=== PATIENT | male | born 1975 | race African-American/Black ===

== ENCOUNTER 2018-07-30 21:34 | Emergency (ER) | payer OTHER, SELFPAY | END 2018-07-31 01:40 | disposition home or self-care (01) | LOC: ERS 21:34 | DX: K02.9 Dental caries, unspecified (principal); F17.210 Nicotine dependence, cigarettes, uncomplicated | CPT/HCPCS: 99282 ==

== ENCOUNTER 2020-02-20 15:48 | Observation (INO) | payer SELFPAY ==
[2020-02-20] MEDS ORDERED: Acetaminophen 500 MG TAB ONE (16:08)
[2020-02-20] MEDS ORDERED: Ibuprofen 200 MG TAB ONE (16:08)
[2020-02-20 16:50] LABS: #Basophils 0.1 thou/uL (0.0-0.2); #Eosinphils 0.3 thou/uL (0.0-0.7); #Lymphocytes 2.4 thou/uL (1.20-3.40); #Monocytes 0.6 thou/uL (0.11-0.59); #Neutrophils 2.9 thou/uL (1.40-6.50); %Basophils 1.6 % (0.0-1.0); %Eosinophils 4.2 % (0.0-10.0); %Lymphocytes 38.5 % (21.0-51.0); %Monocytes 9.8 % (0.0-10.0); %Neutrophils 45.8 % (42.0-75.0); Mean Corpuscular HGB CONC 33.9 g/dL (32.0-36.0); Mean Corpuscular Hemoglobin 30.8 pg (27.0-31.0); Mean Corpuscular Volume 90.9 fL (78.0-98.0); Mean Platelet Volume 7.7 fL (7.4-10.4); Platelet Count 200 thou/uL (130-400); RBC Distribution Width 12.1 % (11.5-14.5); Red Blood Cell (RBC) Count 3.91 mill/uL (4.70-6.10); White Blood Cell (WBC) Count 6.3 thou/uL (4.8-10.8)
[2020-02-20 16:54] LABS: Prothrombin Time 13.1 SEC (12.0-14.7)
--- NOTE | 2020-02-20 16:55 | CT ---
CT BRAIN WITHOUT CONTRAST: History: Headache, facial droop. FINDINGS: No evidence of acute infarct, hemorrhage, midline shift or abnormal extraaxial fluid collections is s een. The ventricular size is normal and the basilar cisterns patent. The bony calvarium is intact. Th e visualized paranasal sinuses and mastoid air cells are well aerated. IMPRESSION: No CT evidence of acute intracranial process. POS: MZA
[2020-02-20 17:12] LABS: ALT (SGPT) 8 U/L (8-55); AST (SGOT) 16 U/L (5-34); Albumin 4.4 g/dL (3.5-5.0); Alkaline Phosphatase 61 U/L (40-110); Anion Gap 10 mmol/L (10-20); BUN (Urea Nitrogen) 14 mg/dL (8.9-20.6); Bilirubin, Total 0.3 mg/dL (0.2-1.2); Calc. Creatinine Clearance 0 mL/min (70-130); Calcium 9.4 mg/dL (7.8-10.44); Carbon Dioxide 27 mmol/L (22-29); Chloride 107 mmol/L (98-107); Estimated GFR-MDRD 89; Globulin 2.4 g/dL (2.4-3.5); Glucose 75 mg/dL (70-105); Potassium 4.7 mmol/L (3.5-5.1); Protein, Total 6.8 g/dL (6.0-8.3); Sodium 139 mmol/L (136-145)
[2020-02-20] MEDS ORDERED: Aspirin 325 MG TAB ONE (17:14)
[2020-02-20] MEDS ORDERED: hydrALAZINE 20 MG/ML VIAL SLOW IVP PRN (18:26)
[2020-02-20] MEDS ORDERED: Labetalol HCl 100 MG/20 ML VIAL SLOW IVP PRN (18:26)
--- NOTE | 2020-02-20 18:41 | PDOC.HHP ---
Hospitalist HPI - History of Present Illness Left sided weakness History of Present Illness: PCP: [facility] The patient is a 44/M with PMH significant for marijuana and tobacco abuse that presents to the ER for the above complaint. The patient reports "blacking out" approximately one month ago while walking down the street. He states that he doesn't remember falling, but remembers some people that were walking by him, holding him up because he had a near syncopal episode. He states that he went to the [facility] ER that evening and was diagnosed with anxiety, no testing performed. Since "blacking out", the patient reports having left sided weakness. Reports he has difficulty holding objects in his left hand. He also has noticed that his left leg is a little weak when he is walking. He denies any new falls or trauma. Reports associated blurry vision in his left eye. Denies any headaches, slurred speech, dysphagia. ED Course: VSS NIH 3, Left Nasolabial fold, LUE and LLE drift GCS [address] brain negative for acute intracranial hemorrhage Labs unremarkable Given ASA 324mg Motrin and tylenol Hospitalist ROS - Review of Systems Constitutional: denies: fever, chills, sweats, weakness, malaise, other Eyes: reports: vision change. denies: conjunctivae inflammation, eyelid inflammation ENT: denies: ear pain, ear discharge, nose pain, nose discharge, nose congestion , mouth pain, mouth swelling, throat pain, throat swelling, other Respiratory: denies: cough, dry, shortness of breath, hemoptysis, SOB with excertion, pleuritic pain, sputum, wheezing, other Cardiovascular: denies: chest pain, palpitations, orthopnea, paroxysmal noc. dyspnea, edema, light headedness, other Gastrointestinal: denies: nausea, vomiting, abdominal pain, diarrhea, constipation, melena, hematochezia, other Genitourinary: denies: dysuria, frequency, incontinence, hematuria, retention, other Skin: denies: rash, bruising Neurological: reports: weakness. denies: change in speech, confusion, seizures Hospitalist History - Past Medical History Source: patient Cardiac: reports: no pertinent history Pulmonary: reports: no pertinent history [employer]: reports: no pertinent history Gastrointestinal: reports: no pertinent history Heme/Onc: reports: no pertinent history Hepatobiliary: reports: no pertinent history Musculoskeletal: reports: no pertinent history Rheumatologic: reports: no pertinent history ENT: reports: no pertinent history Renal/: reports: no pertinent history Endocrine: reports: no pertinent history Dermatology: reports: no pertinent history - Past Surgical History Past Surgical History: reports: no pertinent history - Family History Family History: reports: diabetes mellitus - Social History Smoking Status: Current every day smoker Tobacco Type: cigarettes Drugs: reports: marijuana Living Situation: Alone Occupation: Homeless, lives in [place], sometimes with mother, 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 Activity level: independent ambulation - Exam General Appearance: NAD, awake alert Eye: PERRL, anicteric sclera ENT: normocephalic atraumatic, moist mucosa Neck: no JVD, no thyromegaly, no lymphadenopathy, no carotid bruit Heart: RRR, no murmur, no gallops, no rubs, normal peripheral pulses Respiratory: CTAB, no wheezes, no rales, no ronchi Gastrointestinal: soft, non-tender, non-distended, normal bowel sounds, no guarding, no rigidity Extremities: no cyanosis, no edema Skin: no lesions, no rashes Neurological: cranial nerve grossly intact Neurological - other findings: NIH 2, left Nasolabial fold and LLE drift Psychiatric: normal affect, A&O x 3 Hospitalist Results - Labs Result Diagrams: 02/20/20 16:38 02/20/20 16:38 Lab results: WBC 6.3 thou/uL (4.8-10.8) 02/20/20 16:38 Hgb 12.0 g/dL (14.0-18.0) L 02/20/20 16:38 Hct 35.5 % (42.0-52.0) L 02/20/20 16:38 MCV 90.9 fL (78.0-98.0) 02/20/20 16:38 Plt Count 200 thou/uL (130-400) 02/20/20 16:38 Neutrophils % 45.8 % (42.0-75.0) 02/20/20 16:38 Sodium 139 mmol/L (136-145) 02/20/20 16:38 Potassium 4.7 mmol/L (3.5-5.1) 02/20/20 16:38 Chloride 107 mmol/L (98-107) 02/20/20 16:38 Carbon Dioxide 27 mmol/L (22-29) 02/20/20 16:38 BUN 14 mg/dL (8.9-20.6) 02/20/20 16:38 Creatinine 1.09 mg/dL (0.7-1.3) 02/20/20 16:38 Glucose 75 mg/dL (70-105) 02/20/20 16:38 Calcium 9.4 mg/dL (7.8-10.44) 02/20/20 16:38 Total Bilirubin 0.3 mg/dL (0.2-1.2) 02/20/20 16:38 AST 16 U/L (5-34) 02/20/20 16:38 ALT 8 U/L (8-55) 02/20/20 16:38 Alkaline Phosphatase 61 U/L (40-110) 02/20/20 16:38 Troponin I Less than 0.010 ng/mL (< 0.028) 02/20/20 16:38 Serum Total Protein 6.8 g/dL (6.0-8.3) 02/20/20 16:38 Albumin 4.4 g/dL (3.5-5.0) 02/20/20 16:38 - EKG Interpretation EKG: NSR - Radiology Interpretation CT scan - head Status: report reviewed by me Hospitalist H&P A/P - Problem (1) CVA (cerebral vascular accident) Code(s): I63.9 - CEREBRAL INFARCTION, UNSPECIFIED Status: Acute Assessment and Plan: Admit to telemetry floor, observation status Expected stay less than 24 hours Obtain MRI, CD US, echocardiogram Consult neurology Continue ASA Check FLP, TSH, folic acid and B12 Neuro checks (2) Left hemiparesis Code(s): G81.94 - HEMIPLEGIA, UNSPECIFIED AFFECTING LEFT NONDOMINANT SIDE Status: Acute Assessment and Plan: NIH 2, GCS 15 left facial droop and LLE drift Will perform NIH q shift (3) Marijuana abuse Code(s): F12.10 - CANNABIS ABUSE, UNCOMPLICATED Status: Chronic Assessment and Plan: Patient unwilling to quit Will check serum and urine Drug screen (4) Tobacco abuse Code(s): Z72.0 - TOBACCO USE Status: Chronic Assessment and Plan: Smokes 1 ppd Unwilling to quit Does not request NRT at this time Smoking cessation counseling. - Plan Plan: SCDs for DVT prophylaxis Full Code DPOA sister, Bianca @ [phone]
[2020-02-20] MEDS ORDERED: Acetaminophen 325 MG TAB PO PRN (18:52)
[2020-02-20] MEDS: Famotidine 20 MG TAB PO SCH (20:21)
[2020-02-20 20:43] LABS: Acetaminophen Less than 6.0 mcg/mL (10.0-30.0); Alcohol Less than 10 mg/dL (Less than 10); Salicylate Less than 8.0 mg/dL (15.0-30.0)
[2020-02-20 21:31] VITALS: BMI 23.2
[2020-02-21 03:41] LABS: Amphetamine Not Detected (NotDetected); Barbiturates Screen Not Detected (NotDetected); Benzodiazepine Screen Not Detected (NotDetected); Cocaine Metabolite Screen Not Detected (NotDetected); Medtox Control Line Valid? VALID (VALID); Medtox Reader # READER 1; Methadone Not Detected (NotDetected); Methamphetamine Not Detected (NotDetected); Opiate Screen Not Detected (NotDetected); Oxycodone Screen Not Detected (NotDetected); Phencyclidine (PCP) Not Detected (NotDetected); THC/Cannabinoid Screen Detected (NotDetected); Tricyclic Screen Not Detected (NotDetected)
[2020-02-21 03:47] LABS: Bacteria/HPF None Seen HPF (None Seen); Bilirubin Negative (Negative); Blood, Urine Negative (Negative); Clarity Clear (Clear); Glucose, Urine (Dipstick) Normal (Negative); Leukocyte Negative Leu/uL (Negative); Nitrite Negative (Negative); Protein, Urine (Dipstick) 10 mg/dL (Neg-Trace); RBC/HPF 0-3 HPF (0-3); Squamous Epithelial None Seen HPF (0-3); Urobilinogen Normal mg/dL (Less than 2); WBC/HPF 0-3 HPF (0-3)
[2020-02-21 05:16] LABS: Anion Gap 9 mmol/L (10-20); BUN (Urea Nitrogen) 13 mg/dL (8.9-20.6); Calc. Creatinine Clearance 104 mL/min (70-130); Calcium 9.1 mg/dL (7.8-10.44); Carbon Dioxide 25 mmol/L (22-29); Cardiac Risk 2.8 (Less than 4.5); Chloride 107 mmol/L (98-107); Cholesterol 153 mg/dl (< 200 Desired); Estimated GFR-MDRD Greater than 90; Glucose 83 mg/dL (70-105); HDL Cholesterol 54 mg/dL (>60 Neg Risk); LDL Cholesterol, Calculated 89 mg/dL; Potassium 4.3 mmol/L (3.5-5.1); Sodium 137 mmol/L (136-145); Triglycerides 48 mg/dL (Less than 150)
[2020-02-21 05:37] LABS: Eosinophils 4 % (0-10); Hemoglobin 11.3 g/dL (14.0-18.0); Hypochromia SLIGHT = 6-15 cells (100X) (0-5/hpf); Lymphocytes 61 % (21-51); MDiff Complete? YES; Mean Corpuscular HGB CONC 32.8 g/dL (32.0-36.0); Mean Corpuscular Hemoglobin 30.1 pg (27.0-31.0); Mean Corpuscular Volume 91.7 fL (78.0-98.0); Mean Platelet Volume 7.9 fL (7.4-10.4); Monocytes 3 % (0-10); Neutrophil 32 % (42-75); Platelet Count 182 thou/uL (130-400); Platelet Morphology Comment Appears Adequate; RBC Distribution Width 12.2 % (11.5-14.5); Red Blood Cell (RBC) Count 3.75 mill/uL (4.70-6.10); White Blood Cell (WBC) Count 4.3 thou/uL (4.8-10.8)
--- NOTE | 2020-02-21 07:48 | ULT ---
BILATERAL CAROTID DUPLEX ULTRASOUND: DATE: 02/21/2020 HISTORY: Stroke. TECHNIQUE: Majano scale ultrasound with color flow and spectral Doppler imaging of the extracranial carotid artery systems performed bilaterally. FINDINGS: No significant plaque formation or intimal wall thickening seen. The peak systolic velocity in the right ICA measures 69 cm/second with an end-diastolic velocity of 2 2 cm/second and a systolic ratio of 0.77. The peak systolic velocity in the left ICA measures 60 cm/second with an end-diastolic velocity of 17 cm/second and a systolic ratio of 0.57. Flow in both vertebral arteries remains antegrade. IMPRESSION: No evidence of hemodynamically significant stenosis. POS: ROBINA
[2020-02-21] MEDS: Famotidine 20 MG TAB PO SCH (08:15)
[2020-02-21] MEDS ORDERED: Aspirin 325 mg Enteric Coated Tablet PO SCH (09:00)
[2020-02-21] MEDS ORDERED: Aspirin 81 mg Enteric Coated Tablet PO SCH (09:00)
--- NOTE | 2020-02-21 09:13 | PDOC.HOSPP ---
- Subjective Encounter Date: 02/21/20 Encounter Time: 11:35 Subjective: Patient without complaint this AM, states still with left sided weakness. Had left facial droop yesterday, but when I examined him this morning it was on the right and very obvious. I am suspicious about these symptoms being intentional. - Objective Vital Signs & Weight: Vital Signs (12 hours) Temp Pulse Pulse Pulse Resp BP BP 02/21/20 08:00 98 F 53 L 16 02/21/20 07:54 53 L 52 L 109/65 109/70 02/21/20 03:11 97.5 F L 58 L 16 02/20/20 23:56 97.6 F 61 16 BP BP Pulse Ox 02/21/20 08:00 104/65 100 02/21/20 07:54 02/21/20 03:11 103/64 99 02/20/20 23:56 101/57 L 99 Weight Weight 171 lb 1.6 oz I&O: 02/20/20 02/21/20 02/22/20 06:59 06:59 06:59 Intake Total 610 Output Total 350 Balance 260 Result Diagrams: 02/21/20 04:23 02/21/20 04:23 Hospitalist ROS - Review of Systems Constitutional: denies: fever, chills Respiratory: denies: cough, dry, shortness of breath Cardiovascular: denies: chest pain, palpitations Gastrointestinal: denies: nausea, vomiting, abdominal pain Genitourinary: denies: dysuria, hematuria - Medication Medications: Active Medications Generic Name Dose Route Start Last Admin Trade Name Freq PRN Reason Stop Dose Admin Aspirin 325 mg 02/21/20 09:00 02/21/20 08:15 Ecotrin PO 325 mg DAILY BARON Administration Famotidine 20 mg 02/20/20 21:00 02/21/20 08:15 Pepcid PO 20 mg BID BARON Administration Sodium Chloride 10 ml 02/20/20 21:00 02/21/20 08:15 Flush - Normal Saline IVF 10 ml Q12HR BARON Administration - Exam General Appearance: NAD, awake alert ENT: moist mucosa Heart: RRR, no murmur, no gallops, no rubs Respiratory: CTAB, no wheezes, no rales, no ronchi Gastrointestinal: soft, non-tender, non-distended, normal bowel sounds Neurological - other findings: marked right facial droop this AM, left yesterday , min weakness LUE Psychiatric: normal affect, normal behavior, A&O x 3 Hosp A/P (1) Left hemiparesis Code(s): G81.94 - HEMIPLEGIA, UNSPECIFIED AFFECTING LEFT NONDOMINANT SIDE Status: Acute (2) Marijuana abuse Code(s): F12.10 - CANNABIS ABUSE, UNCOMPLICATED Status: Chronic (3) Tobacco abuse Code(s): Z72.0 - TOBACCO USE Status: Chronic - Plan MRI negative U/S carotids normal Neuro consult- can cancel ECHO being done right now. Patient appears to be malingering. Will d/c home.
--- NOTE | 2020-02-21 09:40 | MRI ---
Exam: Brain MRI without contrast HISTORY: Left sided weakness, times a few weeks. COMPARISON: None FINDINGS: Calvarial marrow signal intensity: Appropriate T1 signal Gradient echo sequence: No hemorrhage Brain parenchyma: No mass, mass effect or midline shift. Brain volume, age-appropriate. Cortical taylor-white matter differentiation: Preserved Restricted diffusion: Central arterial flow voids are maintained. Absent restricted diffusion White matter signal intensities:No significant T2 or FLAIR white matter hyperintensities. Sinuses: Adequate aeration of the paranasal sinuses and mastoid air cells. IMPRESSION: 1. Absent restricted diffusion. No acute infarct. 2. No significant T2 or FLAIR white matter hyperintensities
[2020-02-21 11:34] VITALS: TEMP 98.4
[2020-02-21] MEDS ORDERED: FLU VACC QS2019-20(6MOS UP)/PF 60 MCG/0.5 ML SYRINGE IM ONE (13:15)
[2020-02-21 14:07] VITALS: BP 102/66
--- NOTE | 2020-02-21 14:42 | DIS ---
DATE OF ADMISSION: 02/20/2020 DATE OF DISCHARGE: 02/21/2020 PRIMARY CARE PHYSICIAN: Raven Butler. REASON FOR ADMISSION: Left-sided weakness, possible stroke. DIAGNOSES AT DISCHARGE: 1. Left-sided weakness with alternating facial droop, appears to be malingering. 2. Marijuana abuse. 3. Tobacco abuse. PROCEDURES: 1. CT of the brain without contrast showing no acute intracranial abnormality. 2. Carotid Dopplers bilaterally showing no evidence for stenosis. 3. MRI of the brain showing no evidence for acute stroke or other abnormality. 4. Echocardiogram, result pending. LABORATORY DATA: Notable for positive drug screen for marijuana. Normal fasting lipid profile. Otherwise, normal labs except for a mild anemia. CONSULTATIONS: None. SUMMARY OF HOSPITAL COURSE: This is a 44-year-old male, reportedly homeless, seen at [facility] 3 to 4 weeks ago after a fall. He states at that time he was diagnosed with anxiety and was given some antihistamine. No imaging was done. He reports that he has had some trouble holding things with his left hand ever since. He came into the hospital here. He had mild weakness on his left arm and leg and flattening of his left nasolabial fold. He was admitted for possible stroke. CT was negative. MRI was negative. Carotid ultrasound was negative. Echo was done and is pending. The next day, on exam, the patient actually had a right facial droop instead of the left, which was different from his admission. At this point, it appears that he is having some malingering. He does not have any evidence of psychosis or other acute psychiatric issues at this time. His lipid profile was negative and he is being discharged home. DISCHARGE MANAGEMENT: Discharged home. MEDICATIONS: None. FOLLOWUP: Follow up with a primary care physician in the next 1 to 2 weeks. ACTIVITY: As tolerated. DIET: Regular diet. Job ID: [id number]
--- NOTE | 2020-02-23 11:12 | EKG ---
Test Reason : L SIDED WEAKNESS Blood Pressure : / mmHG Vent. Rate : 062 BPM Atrial Rate : 062 BPM P-R Int : 152 ms QRS Dur : 092 ms QT Int : 386 ms P-R-T Axes : 030 060 051 degrees QTc Int : 391 ms Normal sinus rhythm Normal ECG Confirmed by SNEHA DAVIS, GIGI Garza ([id number]), editor index AURELIANO JOHNSTON ([id number]) on 02/23/2020 11:12:38 AM Referred By: SNEHA Confirmed By:GIGI HOOVER MD
== END 2020-02-21 13:54 | disposition home or self-care (01) ==
LOC: ERS 15:48 → 2SE 18:37
PROVIDERS: ADMIT Emergency Medicine; ATTEND Emergency Medicine
DX: G81.94 Hemiplegia, unspecified affecting left nondominant side (principal); R29.810 Facial weakness; F12.10 Cannabis abuse, uncomplicated; F17.210 Nicotine dependence, cigarettes, uncomplicated; F41.9 Anxiety disorder, unspecified; Z59.0 Homelessness
CPT/HCPCS: 36415; 70450; 70551; 80048; 80053; 80061; 80306; 80307; 81001; 82607; 82746; 84443; 84484; 85025; 85610; 85730; 90471; 90686; 90732; 93005; 93306; 93880; G0008; G0009; G0378

== ENCOUNTER 2022-09-03 12:26 | Outpatient (CLI) | payer OTHER | END 2022-09-03 12:27 | disposition home or self-care (01) | LOC: BICCT 12:26 | PROVIDERS: ATTEND Nurse Practitioner Family | DX: R55 Syncope and collapse (principal) | CPT/HCPCS: 70450 ==